=== PATIENT | male | born 1975 | race Two or more races ===

== ENCOUNTER 2023-07-22 08:45 | Inpatient (IN) | payer MEDICAID, OTHER ==
[~2023-07-22] VITALS: Ht 180.3 cm; Wt 113.4 kg
[2023-07-22] MEDS ORDERED: NICOTINE 21 MG/24 HOUR PATCH TD ONE (10:30)
[2023-07-22] MEDS ORDERED: DiphenhydrAMINE HCL 50 MG/ML VIAL IM ONE (11:15)
[2023-07-22] MEDS ORDERED: LORazepam 2 MG/ML VIAL IM ONE (11:15)
[2023-07-22] MEDS ORDERED: HALOPERIDOL LACTATE 5 MG/ML VIAL IM ONE (11:15)
[2023-07-22 11:34] LABS: BASOPHILS % (AUTO) 0.6 % (0.0-2.0); EOSINOPHILS % (AUTO) 1.7 % (1.0-6.0); HEMATOCRIT 47.1 % (41-53); LYMPHOCYTES # (AUTO) 2.9 K/uL (1.0-4.8); LYMPHOCYTES % (AUTO) 27.7 % (22.0-44.0); MEAN CORPUSCULAR HEMOGLOBIN 30.8 pg (26.0-34.0); MEAN CORPUSCULAR VOLUME 91 fL (80-100); MONOCYTES # (AUTO) 0.6 K/uL (0.1-1.0); MONOCYTES % (AUTO) 5.9 % (2.0-9.0); NEUTROPHILS # (AUTO) 6.6 K/uL (1.8-7.7); NEUTROPHILS % (AUTO) 64.1 % (40.0-70.0); PLATELET COUNT (AUTO) 231 K/uL (150-450); RED CELL DISTRIBUTION WIDTH 13.4 % (11.5-14.5); WHITE BLOOD COUNT (AUTO) 10.3 K/uL (4.5-11.0)
[2023-07-22 11:40] LABS: ANION GAP 8 mmol/L (8-16); CALCIUM, TOTAL 9.7 mg/dL (8.8-10.5); CARBON DIOXIDE 27 mmol/L (22-29); CHLORIDE 99 mmol/L (98-107); CREATININE 1.07 mg/dL (0.60-1.30); GLOMERULAR FILTR. RATE CALC > 60 mL/min (>60); GLUCOSE,RANDOM 143 mg/dL (70-110); POTASSIUM 3.8 mmol/L (3.5-5.1); SODIUM SERUM 134 mmol/L (136-145); UREA NITROGEN, BLOOD 15 mg/dL (7-18)
[2023-07-22 11:45] LABS: ALANINE AMINOTRANSFERASE 52 U/L (12-78); ALBUMIN 3.6 g/dL (3.4-5.0); ALKALINE PHOSPHATASE 114 U/L (46-116); ASPARTATE AMINOTRANSFERASE 28 U/L (15-37); BILIRUBIN,TOTAL 0.3 mg/dL (0.1-1.0)
[2023-07-22 11:48] LABS: ALCOHOL, BLOOD (SERUM) < 3 mg/dL (0-10)
[2023-07-22 11:48] LABS: ALCOHOL, URINE DRUG SCREEN NEGATIVE (NEGATIVE); AMPHET/METH SCREEN,URINE NEGATIVE (NEGATIVE); BARBITURATE SCREEN, URINE NEGATIVE (NEGATIVE); BENZODIAZEPINES SCREEN,URINE NEGATIVE (NEGATIVE); CANNABINOID SCREEN,URINE NEGATIVE (NEGATIVE); COCAINE SCREEN,URINE NEGATIVE (NEGATIVE); METHADONE SCREEN, URINE NEGATIVE (NEGATIVE); OPIATE SCREEN,URINE NEGATIVE (NEGATIVE); PHENCYCLIDINE SCREEN,URINE NEGATIVE (NEGATIVE)
[2023-07-22] MEDS ORDERED: LORazepam 2 MG TABLET PO PRN (13:15)
[2023-07-22] MEDS ORDERED: ZOLPIDEM TARTRATE 10 MG TABLET PO PRN (13:15)
[2023-07-22] MEDS ORDERED: HALOPERIDOL 5 MG TABLET PO PRN (13:15)
[2023-07-22 14:26] LABS: COVID AG,FIA SOURCE NASAL SWAB
[2023-07-22 14:54] LABS: SARS-COV2 (COVID) ANTIGEN,FIA Negative (Negative)
[2023-07-22] MEDS ORDERED: FLUO20CA36 PO (16:13)
[2023-07-22] MEDS ORDERED: QUET25TA PO (16:13)
[2023-07-22] MEDS ORDERED: PRAZ2 PO (16:13)
[2023-07-22 20:25] VITALS: BP 118/70; PULSE 78; RESP 18; TEMP 97.7; O2SAT 97
[2023-07-23] MEDS: NICOTINE 14 MG/24 HOUR PATCH TD SCH (08:16)
[2023-07-23 08:22] VITALS: BP 118/71; PULSE 86; RESP 18; TEMP 97.6; O2SAT 98
[2023-07-23] MEDS: QUEtiapine FUMARATE 25 MG TABLET PO SCH ×2 (12:07→17:16)
[2023-07-23] MEDS ORDERED: ACETAMINOPHEN 325 MG TABLET PO PRN (13:30)
[2023-07-23] MEDS ORDERED: MAGNESIUM HYDROXIDE SUSPENSION 30 ML UDCUP PO PRN (13:30)
[2023-07-23] MEDS ORDERED: NICOTINE 14 MG/24 HOUR PATCH TD PRN (13:30)
[2023-07-23] MEDS ORDERED: PETROLATUM,WHITE 28 GM JELLY TP PRN (13:30)
[2023-07-23] MEDS ORDERED: ALBUTEROL SULFATE HFA 90 MCG/PUFF 8 GM INHALER IH PRN (13:30)
[2023-07-23] MEDS ORDERED: LOPERAMIDE HCL 2 MG CAPSULE PO PRN (13:30)
[2023-07-23] MEDS ORDERED: GuaiFENesin/D-METHORPHAN [SUGAR-FREE] 200-20MG/10 ML SYRUP UDCUP PO PRN (13:30)
[2023-07-23] MEDS ORDERED: CloNIDine HCL 0.1 MG TABLET PO PRN (13:30)
[2023-07-23] MEDS ORDERED: DOCUSATE SODIUM 100 MG CAPSULE PO PRN (13:30)
[2023-07-23] MEDS ORDERED: IBUPROFEN 400 MG TABLET PO PRN (13:30)
[2023-07-23] MEDS ORDERED: ONDANSETRON HCL 4 MG TABLET PO PRN (13:30)
[2023-07-23] MEDS ORDERED: MAG HYDROX/ALUMINUM HYD/SIMETH ES 30 ML SUSPENSION UDCUP PO PRN (13:30)
[2023-07-23 14:27] VITALS: RESP 18
[2023-07-23 20:24] VITALS: BP 108/68; PULSE 75; RESP 18; TEMP 97.8; O2SAT 96
[2023-07-24 08:09] LABS: HEMOGLOBIN A1C 5.7 % (3.8-5.6)
[2023-07-24 08:45] LABS: CHOL/HDL RATIO 3.4 (4.2-7.3); THYROID STIMULATING HORMONE 2.81 uIU/mL (0.36-3.74)
[2023-07-24] MEDS: QUEtiapine FUMARATE 25 MG TABLET PO SCH ×3 (08:53→17:18)
[2023-07-24] MEDS: NICOTINE 14 MG/24 HOUR PATCH TD SCH (08:53)
[2023-07-24] MEDS: FLUoxetine HCL 20 MG CAPSULE PO SCH (08:53)
[2023-07-24 09:04] VITALS: BP 105/60; PULSE 94; RESP 18; TEMP 97.8; O2SAT 97
[2023-07-24] MEDS ORDERED: PALIPERIDONE PALMITATE 234 MG/1.5 ML SYRINGE IM SCH (17:00)
[2023-07-24 20:15] VITALS: BP 108/64; PULSE 88; RESP 18; TEMP 98; O2SAT 97
[2023-07-25 08:25] VITALS: BP 109/71; PULSE 81; RESP 18; TEMP 98; O2SAT 100
[2023-07-25] MEDS: NICOTINE 14 MG/24 HOUR PATCH TD SCH (08:29)
[2023-07-25] MEDS: FLUoxetine HCL 20 MG CAPSULE PO SCH (08:29)
[2023-07-25] MEDS: QUEtiapine FUMARATE 25 MG TABLET PO SCH ×2 (08:29→13:03)
[2023-07-25] MEDS ORDERED: QUET25TA36 PO (10:58)
[2023-07-25] MEDS ORDERED: PALI234D IM (10:58)
[2023-07-25] MEDS ORDERED: FLUO20CA36 PO (10:58)
[2023-08-21] MEDS ORDERED: PALIPERIDONE PALMITATE 234 MG/1.5 ML SYRINGE IM SCH (09:00)
== END 2023-07-25 13:58 | disposition home or self-care (01) | DRG 750 ==
LOC: EMS 08:50 → B3A 15:10
PROVIDERS: ADMIT Psychiatry & Neurology Child & Adolescent Psychiatry; ATTEND Psychiatry & Neurology Child & Adolescent Psychiatry
DX: F25.9 Schizoaffective disorder, unspecified (principal); E87.1 Hypo-osmolality and hyponatremia; R73.9 Hyperglycemia, unspecified; Z20.822 Contact with and (suspected) exposure to COVID-19; G47.00 Insomnia, unspecified; Z88.0 Allergy status to penicillin; Z79.899 Other long term (current) drug therapy
CPT/HCPCS: 80053; 80061; 80307; 83036; 84443; 85025; 99285; G0480; J1200; J1630; J2060